=== PATIENT | female | born 1990 | race Caucasian/White ===

== ENCOUNTER → 2016-11-05 | Outpatient (CLI) | payer OTHER ==
[~2016-11-05] MED LIST: AMOXICILLIN500 MG PO; FLINTSTONES COM1 CT1 PO; PEN-VEE K500 MG PO; PERCOCET 325 MG1 TA5 PO; PHENERGAN W/ DE30 ML PO; PREDNICOT10 MG PO; PROAIR HFA0.09 MG/AC INH; ZITHROMAX Z PA250 MG PO; ZYRTEC10 MG PO
== END | disposition home or self-care (01) ==
LOC: RAD 12:21
DX: R05 Cough (principal); R09.89 Other specified symptoms and signs involving the circulatory and respiratory systems

== ENCOUNTER → 2019-11-06 | Outpatient (CLI) | payer BC, OTHER | END | disposition home or self-care (01) | LOC: US 12:04 | DX: N63.13 Unspecified lump in the right breast, lower outer quadrant (principal) ==

== ENCOUNTER 2022-02-11 22:09 | Emergency (ER) | payer OTHER ==
[~2022-02-11] VITALS: Ht 157.4 cm; Wt 73.5 kg
[2022-02-11] MEDS ORDERED: ZOFRAN4 MG SL (23:39)
== END 2022-02-11 23:54 | disposition home or self-care (01) ==
LOC: ED 22:09
DX: K52.9 Noninfective gastroenteritis and colitis, unspecified (principal); R11.2 Nausea with vomiting, unspecified; Z79.899 Other long term (current) drug therapy

== ENCOUNTER 2023-09-05 21:56 | Emergency (ER) | payer BC ==
[~2023-09-05] VITALS: Ht 154.9 cm; Wt 98.9 kg
[~2023-09-05 21:56] MED LIST changes: +ZOFRAN4 MG SL
[2023-09-05] MEDS ORDERED: PROCARDIA XL30 MG PO (22:06)
[2023-09-05] MEDS ORDERED: PRENATABS FA T1 EACH PO (22:07)
[2023-09-05 22:31] LABS: BILIRUBIN Negative (Negative); BLOOD 2+ (Negative); CLARITY Clear (Clear); COLOR Yellow (Yellow); GLUCOSE Negative (Negative); KETONE Negative (Negative); LEUKO ESTERASE Negative (Negative); NITRITE Negative (Negative); PH 5.5 (4.5-8.0); SPECIFIC GRAVITY 1.025 (1.001-1.030); UROBILINOGEN 0.2 E.U./dl (0.0-1.0)
[2023-09-05 22:43] LABS: BACTERIA 1+; MUCOUS 1+; RBC 16-20 rbc/hpf (0-2)
== END 2023-09-05 22:58 | disposition home or self-care (01) ==
LOC: ED 21:56
PROVIDERS: Internal Medicine
DX: O26.891 Other specified pregnancy related conditions, first trimester (principal); S39.012A Strain of muscle, fascia and tendon of lower back, initial encounter; M54.42 Lumbago with sciatica, left side; M79.605 Pain in left leg; J45.909 Unspecified asthma, uncomplicated; G43.909 Migraine, unspecified, not intractable, without status migrainosus; Z98.890 Other specified postprocedural states; Z3A.01 Less than 8 weeks gestation of pregnancy; Z79.899 Other long term (current) drug therapy; X58.XXXA Exposure to other specified factors, initial encounter; Y93.89 Activity, other specified; Y92.009 Unspecified place in unspecified non-institutional (private) residence as the place of occurrence of the external cause; Y99.8 Other external cause status